=== PATIENT | female | born 1955 ===

== ENCOUNTER 2017-11-28 10:55 | Emergency (ER) | payer OTHER ==
[~2017-11-28] VITALS: Ht 162.6 cm; Wt 65.8 kg
[2017-11-28 11:24] VITALS: BP 139/74; PULSE 75; RESP 16; TEMP 98.1; O2SAT 97
--- NOTE | 2017-11-28 12:37 | PD ---
HPI Chief Complaint: Injury Time Seen by Provider: 12:02 Travel History International Travel<30 days: No Contact w/Intl Traveler<30days: No Traveled to known affect area: No History of Present Illness HPI This is a 62-year-old female here with bilateral knee pain 1 week. She reports she recently started a workout regimen which included squats and jogging. She has pain in both knees which is worse with weightbearing and climbing up and down stairs. She denies paresthesia or weakness in the extremity is. She denies any injury or trauma to the knees. Symptom severity is mild. The pain is relieved with rest. She was told by several friends that knee pain may be an indication of knee replacement therefore she presented today for evaluation. [facility] Past Medical History Medical History: Denies Significant Hx ?: Not Social History Tobacco Use: No Allergies-Medications (Allergen,Severity, Reaction): Coded Allergies: penicillin G (Verified Allergy, Intermediate, abd pain, 11/28/17) Review of Systems Except as stated in HPI: all other systems reviewed are Neg Physical Exam Narrative GENERAL: Alert and well-appearing 62-year-old female SKIN: Warm and dry. HEAD: Normocephalic. EYES: No injection or drainage. NECK: Supple MUSCULOSKELETAL: No cyanosis, or edema. mild tenderness over the medial collateral ligament and the lateral collateral ligaments of both knees. The patella is stable. No bony tenderness. Patient stable to flex and extend the knees without difficulty. 2+ distal pulses. Data Data Last Documented VS Vital Signs Date Time Temp Pulse Resp B/P (MAP) Pulse Ox O2 Delivery O2 Flow Rate FiO2 11/28/17 11:24 98.1 75 16 139/74 (95) 97 MDM Medical Decision Making Medical Screen Exam Complete: Yes Emergency Medical Condition: Yes Differential Diagnosis knee strain, tendonitis, overuse syndrome Narrative Course 62 year old female with knee pain after working out. extremities are neurovascularly intact. no bony tenderness. continue NSAIDS. low impact workouts when pain resolves. Diagnosis Primary Impression: Knee strain Qualified Codes: S86.919A - Strain of unspecified muscle(s) and tendon(s) at lower leg level, unspecified leg, initial encounter Referrals: Primary Care Physician Additional Instructions: Ibuprofen 800 mg every 6 hours as needed for pain. Low-impact workouts after pain in knees resolves. 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
== END 2017-11-28 12:55 | disposition home or self-care (01) ==
LOC: PHEFT 10:55
DX: S86.919A Strain of unspecified muscle(s) and tendon(s) at lower leg level, unspecified leg, initial encounter (principal); X58.XXXA Exposure to other specified factors, initial encounter; Y93.B9 Activity, other involving muscle strengthening exercises; Z88.0 Allergy status to penicillin
CPT/HCPCS: 99282